=== PATIENT | female | born 2000 | race Hispanic/Latino ===

== ENCOUNTER 2022-02-22 13:48 | Emergency (ER) | payer BC ==
--- NOTE | 2022-02-22 15:41 | EDPHYS ---
Physician Documentation [facility] Name: Kira Alaniz Age: 21 yrs Sex: Female : 2000 Arrival Date: 02/22/2022 Time: 13:50 Bed DIS3 Private MD: ENMA Physician Dhaval Garner HPI: 02/22 15:36 This 21 yrs old Female presents to ER via Ambulatory with complaints of Ear jmm Pain. 15:36 The patient presents with pain. Onset: The symptoms/episode began/occurred gradually. m Modifying factors: The symptoms are alleviated by nothing, the symptoms are aggravated by nothing. Associated signs and symptoms: Pertinent positives: sore throat. The patient has experienced similar episodes in the past. Historical: - Allergies: 14:33 No Known Allergies; iw - Home Meds: 14:33 None [Active]; iw - PMHx: 14:33 None; iw ROS: 15:36 Constitutional: Negative for fever, chills, and weight loss. [facility] 15:36 ENT: Positive for ear pain, sore throat. 15:36 All other systems are negative. Exam: 15:36 Constitutional: This is a well developed, well nourished patient who is awake, alert, jmm and in no acute distress. Head/Face: atraumatic. Eyes: EOMI, no conjunctival erythema appreciated 15:36 Neck: Trachea midline, Supple Chest/axilla: Normal chest wall appearance and motion. Cardiovascular: Regular rate and rhythm. No edema appreciated Respiratory: Normal respirations, no respiratory distress appreciated Abdomen/GI: Non distended, soft Back: Normal ROM Skin: General appearance color normal MS/ Extremity: Moves all extremities, no obvious deformities appreciated, no edema noted to the lower extremities Neuro: Awake and alert Psych: Behavior is normal, Mood is normal, Patient is cooperative and pleasant 15:36 ENT: Ear canal(s): erythema, that is moderate, of the left canal, Posterior pharynx: erythema, that is moderate. Vital Signs: 14:34 BP 122 / 84; Pulse 54; Resp 16; Temp 98.7; Pulse Ox 100% on R/A; iw MDM: 14:39 Patient medically screened. [facility] 15:37 Data reviewed: vital signs, nurses notes. Counseling: I had a detailed discussion with nella the patient and/or guardian regarding: the historical points, exam findings, and any diagnostic results supporting the discharge/admit diagnosis, the need for outpatient follow up, smoking cessation. 02/22 14:39 Order name: Strep; Complete Time: 15:35 [facility] Administered Medications: No medications were administered Disposition Summary: 02/22/22 15:40 Discharge Ordered Location: Home [facility] Condition: Stable [facility] Diagnosis - Acute actinic otitis externa, left ear [facility] - Streptococcal pharyngitis [facility] Followup: [facility] - With: Kinsey Horvath MD - When: 2 - 3 days - Reason: Recheck today's complaints, Continuance of care, Re-evaluation by your physician Discharge Instructions: - Discharge Summary Sheet [facility] - Strep Throat, Adult [facility] - Otitis Externa, [id number] [facility] Forms: - Medication Reconciliation Form [facility] - Thank You Letter [facility] - Antibiotic Education [facility] - Prescription Opioid Use [facility] Prescriptions: - Augmentin 875-125 mg Oral Tablet - take 1 tablet by ORAL route every 12 hours for 10 days; 20 tablet; Refills: 0, [facility] Product Selection Permitted - Cortisporin-TC 3.3-3-10-0.5 mg/mL Otic Suspension - instill 4 drops by OTIC route every 6 hours; 1 bottle; Refills: 0, Product [facility] Selection Permitted Signatures: Dispatcher [employer] Jaciel Freeman PA PA jmm Williams, Irene, RN RN iw
--- NOTE | 2022-02-22 15:41 | ER ---
Nurse's Notes [facility] Name: Kira Alaniz Age: 21 yrs Sex: Female : 2000 Arrival Date: 02/22/2022 Time: 13:50 Bed DIS3 Private MD: Diagnosis: Acute actinic otitis externa, left ear;Streptococcal pharyngitis Presentation: 02/22 14:32 Chief complaint: Patient states: sharp pain in left ear. has been hurting off and on iw for past year but bad today. Coronavirus screen: Client presents with at least one sign or symptom that may indicate coronavirus-19. Ebola Screen: Patient negative for fever greater than or equal to 101.5 degrees Fahrenheit, and additional compatible Ebola Virus Disease symptoms Patient denies exposure to infectious person. Patient denies travel to an Ebola-affected area in the 21 days before illness onset. No symptoms or risks identified at this time. Onset of symptoms was 2020. 14:32 Method Of Arrival: Ambulatory iw 14:32 Acuity: DANNY 4 iw Historical: - Allergies: 14:33 No Known Allergies; iw - Home Meds: 14:33 None [Active]; iw - PMHx: 14:33 None; iw Vital Signs: 14:34 BP 122 / 84; Pulse 54; Resp 16; Temp 98.7; Pulse Ox 100% on R/A; iw ED Course: 13:50 Patient arrived in ED. as 14:33 Triage completed. iw 14:34 Arm band placed on. 14:37 Jaciel Escobedo PA is PHCP. [facility] 14:37 Dhaval Garner MD is Attending Physician. [facility] 15:37 Kinsey Horvath MD is Referral Physician. [facility] 15:49 Bella Betancourt, RN is Primary Nurse. iw Administered Medications: No medications were administered Outcome: 15:40 Discharge ordered by MD. [facility] 15:49 Patient left the ED. Signatures: Jaciel Escobedo PA PA jmm Martinez, Amelia as Bella Betancourt, RN RN iw Corrections: (The following items were deleted from the chart) 14:35 14:34 Pulse 54bpm; Resp 16bpm; Pulse Ox 100% RA; Temp 98.7F; iw iw
[2022-02-22 17:13] VITALS: BP 122/84; TEMP 98.7; O2SAT 100
== END 2022-02-22 15:49 | disposition home or self-care (01) ==
LOC: ER 13:48
DX: H60.512 Acute actinic otitis externa, left ear (principal); J02.0 Streptococcal pharyngitis
CPT/HCPCS: 87081; 99281